=== PATIENT | male | born 1985 | race Caucasian/White ===

== ENCOUNTER → 2024-01-18 16:02 | Outpatient (CLI) | payer OTHER, SELFPAY ==
--- NOTE | 2024-01-18 16:07 | DI.RAD.S_ITS ---
PROCEDURE: XR KNEE RT 3V INDICATIONS: RIGHT KNEE PAIN TECHNIQUE: 3 views of the knee were acquired. COMPARISON: None. FINDINGS: Bones: No fractures or dislocations. No suspicious bony lesions. Soft tissues: Mild joint effusion. No suspicious soft tissue calcifications. IMPRESSION: Mild effusion. No visualized acute fracture or dislocation. However, if clinical concern and/or pain persist, short interval imaging followup in 7-10 days is recommended, as occult injury cannot be definitively excluded. Dictated by: Vero Razo M.D. on 01/18/2024 at 17:37 Approved by: Vero Razo M.D. on 01/18/2024 at 17:37
--- NOTE | 2024-01-18 16:07 | DI.RAD.S_ITS ---
PROCEDURE: XR LUMBAR SPINE MIN 4V INDICATIONS: BACK PAIN TECHNIQUE: 5 views of the lumbar spine were acquired, including bilateral oblique views. COMPARISON: None. FINDINGS: Bones: 5 nonrib-bearing vertebrae are present. There is normal bony alignment. No vertebral body compression fractures. No suspicious bony lesions. Soft tissues: Overlying bowel gas pattern is normal. No suspicious soft tissue calcifications. Oblique images: No pars defects. IMPRESSION: No acute bony abnormality. Approved by: Sukumar Webb M.D. on 01/18/2024 at 17:25
== END ==
LOC: RAD 16:06
PROVIDERS: PCP Registered Nurse Diabetes Educator; Referring Provider Physical Medicine & Rehabilitation; Visit Provider Physical Medicine & Rehabilitation
DX: M25.461 Effusion, right knee (principal); M25.561 Pain in right knee; M54.9 Dorsalgia, unspecified
CPT/HCPCS: 72110; 73562

== ENCOUNTER → 2024-02-02 | Outpatient (CLI) | payer OTHER, SELFPAY | PROVIDERS: PCP Registered Nurse Diabetes Educator; Referring Provider Internal Medicine; Visit Provider Internal Medicine | DX: Z23 Encounter for immunization (principal) | CPT/HCPCS: 90471; 90656 ==

== ENCOUNTER → 2024-03-30 15:45 | Outpatient (CLI) | payer OTHER, SELFPAY ==
--- NOTE | 2024-03-30 15:48 | DI.MRI.S_ITS ---
PROCEDURE: MR KNEE RT WO CON INDICATIONS: KNEE EFFUSION,RT KNEE TECHNIQUE: Noncontrast sagittal PD fast spin echo and T2 fast spin echo with fat saturation, sagittal 3-D FLASH with fat saturation; coronal T1 spin echo and PD fast spin echo with fat saturation, and axial PD fast spin echo with fat saturation through the knee. COMPARISON: None. FINDINGS: Image quality: Excellent Menisci: In the medial meniscus, there is a horizontal oblique tear at the posterior horn and meniscus body junction (14:21). There is mild extrusion of the medial meniscus body. The lateral meniscus is unremarkable. Cruciate ligaments: The anterior and posterior cruciate ligaments appear intact. Medial structures: The medial collateral ligament appears intact. The posterior oblique ligament, semimembranosus tendon insertions, oblique popliteal ligament, and meniscocapsular junction appear intact. Visualized portions of the pes anserinus tendons appear normal. No abnormal bursal fluid. Lateral structures: The lateral collateral ligament, long and short heads of the biceps femoris tendon appear intact. The popliteus tendon appears normal; the popliteofibular ligament appears intact. The posterosuperior and anteroinferior popliteomeniscal fascicles appear intact. The arcuate and fabellofibular ligaments appear intact, on either side of the lateral inferior geniculate artery. Iliotibial band appears normal. Anterior structures: The quadriceps and patellar tendons appear intact. Patellar alignment is normal. No femoral trochlear dysplasia or ventral trochlear prominence. No edema in the infrapatellar fat pad. Bones and cartilage: There is mild chondral irregularity of the median ridge of the patella. The mild chondral irregularity of the central trochlea, with mild subchondral marrow edema. In the medial compartment, the cartilage is well maintained. In the lateral compartment, the cartilage is grossly well maintained as well. No acute fracture. Joint space: Small knee effusion. No popliteal cyst. Popliteal vasculature is unremarkable. No intra-articular body. IMPRESSION: 1. Tear of the medial meniscus. 2. Mild chondrosis of the patellofemoral compartment with mild subchondral marrow edema. Dictated by: Amanda Gonzales M.D. on 03/31/2024 at 10:09 Approved by: Amanda Gonzales M.D. on 03/31/2024 at 10:29
== END ==
PROVIDERS: PCP Registered Nurse Diabetes Educator; Referring Provider Orthopaedic Surgery; Visit Provider Orthopaedic Surgery
DX: S83.241A Other tear of medial meniscus, current injury, right knee, initial encounter (principal); M22.41 Chondromalacia patellae, right knee; M25.461 Effusion, right knee
CPT/HCPCS: 73721

== ENCOUNTER 2024-09-22 15:15 | Outpatient (RCR) | payer OTHER, SELFPAY ==
--- NOTE | 2024-08-25 09:18 | PT.OIE ---
Current Diagnoses Other chronic pain (08/24/24) Dorsalgia, unspecified (08/24/24) Other tear of medial meniscus, current injury, right knee, subsequent encounter (08/24/24) Past Medical History (Last Reviewed 01/19/24 @ 10:21 by Sumit Leon DO) Facet arthropathy, lumbar Herniated nucleus pulposus, L5-S1 Patellofemoral arthralgia of right knee Visit Care Team Role Provider Type AMANDA Palmer Family Provider Advanced Floorman Primary Care Provider Specialty: Medical Address: [address] [place] [address], [address] Email: [email or web address] Dain Gomez MD Attending Provider Non-Staff Referring Provider Specialty: Orthopedic Surgery Address: [address] [place] [address] , [place], [address] Email: Physical Therapy Initial Evaluation PT-OP-A Visit Information Start: 08/24/24 16:11 Freq: Status: Active Protocol: Document 08/24/24 16:12 BL (Rec: 08/24/24 18:18 BL Laptop) Out-Patient Physical Therapy Visit Information Visit Information Visit Type Initial Evaluation Visit Start Time 16:15 Visit Stop Time 16:55 Visit Number (1) 03/17 (PN by 09/23/24) Precautions Precautions Medial and Lateral meniscus debridement on 08/03/24. PT-OP-C Subjective Start: 08/24/24 16:11 Freq: Status: Active Protocol: Document 08/24/24 16:12 BL (Rec: 08/24/24 18:18 BL Laptop) OP-PT Subjective Patient Comments Patient Comments Pt presents to the clinic today following R knee, medial and lateral meniscus debridement on 08/03/24. Pt had is two week follow up on 08/17/24, where he was instructed to continue with WBAT and activity per tolerance. Pt reports he is eager to return to dynamic sport activity including running. Pt states his next follow up in September 20. Pt states overall he is doing well, states he continues to ice and elevate, he did return to work this week and feels the knee is swelling more over the past several days. Has continued to walk up to 15 minutes at a time. Reports no severe pain but states he feels the stiffness and decreased strength. Patient Reported Improving Progress Patient Questionnaires Lower Extremity Functional Scale LEFS Score 38% function. PT-OP-F Manual Assessment Start: 08/24/24 16:11 Freq: Status: Active Protocol: Document 08/24/24 16:12 BL (Rec: 08/24/24 18:18 BL Laptop) Manual Assessments Soft Tissue Assessment Soft Tissue Mobility Pt demos increased swelling around knee. Assessment Joint Mobility Assessment Joint Mobility demos proper arthrokinematics. Assessment PT-OP-H Neuro Start: 08/24/24 16:11 Freq: Status: Active Protocol: Document 08/24/24 16:12 BL (Rec: 08/24/24 18:18 BL Laptop) Sensation Evaluation Comments Summary Comments no sensation deficits noted this date. Coordination Evaluation Comments Coordination no coordination deficits noted this date, however pt Comments reports feeling stiff with flexion activity. PT-OP-J Posture/Palpation/Skin Start: 08/24/24 16:11 Freq: Status: Active Protocol: Document 08/24/24 16:12 BL (Rec: 08/24/24 18:18 BL Laptop) Posture Evaluation Comments Posture Comments Pt demos increased base of support in standing, is able to fully lock out R knee as needed, demos posterior tilt in sitting. Palpation Assessment Location R knee Palpation Details pt point tender to medial aspect, demos good patellar mobility with slight limitations superior limitations Skin Assessment Other Assessments Skin Assessment Incisions healing well, no sign of infection Comments PT-OP-K Range of Motion Start: 08/24/24 16:11 Freq: Status: Active Protocol: Document 08/24/24 16:12 BL (Rec: 08/24/24 18:18 BL Laptop) Hip Goniometric Range of Motion Hip right Hip ROM WFL Yes left Hip ROM WFL Yes Knee Goniometric Range of Motion Knee Right Flexion Active ( 134 degrees) Extension Active ( 0 degrees) Comments pt limited due to discomfort Left Flexion Active ( 155 degrees) Extension Active ( 0 degrees) PT-OP-M Strength Start: 08/24/24 16:11 Freq: Status: Active Protocol: Document 08/24/24 16:12 BL (Rec: 08/24/24 18:18 BL Laptop) Trunk Strength Trunk Manual Muscle Testing Flexion 4 Good Core Stabilization Pt demos difficulty maintaining TA activation with SLR. Hip Strength Hip Manual Muscle Testing Right Flexion (L2) 5 Normal Extension (S1) 4+ Good+ Abduction 5 Normal Adduction 5 Normal Left Flexion (L2) 5 Normal Extension (S1) 4+ Good+ Abduction 5 Normal Adduction 5 Normal Knee Strength Knee Manual Muscle Testing Right Comments not tested today due to recent surgical intervention Left Flexion (S2) 5 Normal Extension (L3) 5 Normal PT-OP-Q Treatments Start: 08/24/24 16:11 Freq: Status: Active Protocol: Document 08/24/24 16:12 BL (Rec: 08/24/24 18:18 BL Laptop) Therapeutic Exercises Supine Exercises strength Supine Exercise Name quad set with ER SLR, heel slides up to tightness Comments focus on core activation and breathing Neuro Re-Education Treatment Coordination Activities Biofeedback Details blood pressure cuff Comments pt instructed in TA activation with use of biofeedback, pt demos difficulty maintaining activation pressure between 30-35. PT-OP-T Assessment and Plan Start: 08/24/24 16:11 Freq: Status: Active Protocol: Document 08/24/24 16:12 BL (Rec: 08/24/24 18:18 BL Laptop) Physical Therapy Assessment Rehab Potential Rehabilitation Good Potential Evaluation Complexity Number of Personal 1-2 Factors/ Comorbidities Number of Body 3 Systems Impaired Clinical Evolving Presentation at Evaluation Impairments Impairments Activity Tolerance,Balance,Coordination,Edema, Functional Activities,Functional Mobility,Gait, Integument,Pain,Posture,ROM,Soft Tissue Mobility, Strength Goals Five Correction Goal (LTG) Pt will be able to demo R knee extension strength to 5/ 5 by DC for improved quad control with gait. Four Wic Site Coordinator Goal (LTG) Pt will be able to demo active R knee flexion to 150 deg or better by DC for improved squatting activities. Three Correction Goal (LTG) Pt will demo improved LEFS score to 95% function or better by DC for improved quality of life. Two Correction Goal (LTG) Pt will be able to report running on uneven ground without increase in symptoms by DC for completion of health and fitness activities One Short Term Goal (STG pt will be ind with HEP within 2 visits in order to ) progress toward halfway therapy goals outside of therapy sessions. Wic Site Coordinator Goal (LTG) Pt will demo cutting activities without increase in symptoms by DC for improved functional mobility with tennis activity. Assessment Summary Assessment Pt healing well after R meniscus debridement, pt demos swelling and stiffness in his knee as well as decreased quad control. Pt demos deficits in strength and AROM. Pt will benefit from skilled Physical Therapy intervention for strength and endurance training as well as progression of dynamic loading activities to return to sport and reduce risk of re-injury. Physical Therapy Plan Frequency and Duration Frequency of 2x/Week Treatment Duration of 12 treatment (weeks) Plan of Care Start 08/24/24 Date Plan of Care End 11/16/24 Date Therapeutic Interventions Therapeutic Balance Training,Coordination Training,Gait Training, Interventions Home Exercise Program,Joint Mobilizations,Manual Therapy,Neuromuscular Re-education,Patient/Caregiver Education,Self-Care/Home Management,Sensory Integration ,Soft Tissue Mobilization,Taping,Therapeutic Activities ,Therapeutic Exercises Modalities Cold Pack/Ice Massage,Electric Stimulation,Hot Packs, Infrared Therapy,Iontophoresis,Traction- Mechanical, Ultrasound Next Visit Focus/Plan Next Note Type Treatment Note Next Visit Plan Advance ROM/Strength per pt tolerance, slow progression for meniscus rehab.
--- NOTE | 2024-08-25 09:23 | PT.OIE ---
Current Diagnoses Other chronic pain (08/24/24) Dorsalgia, unspecified (08/24/24) Other tear of medial meniscus, current injury, right knee, subsequent encounter (08/24/24) Past Medical History (Last Reviewed 01/19/24 @ 10:21 by Sumit Leon DO) Facet arthropathy, lumbar Herniated nucleus pulposus, L5-S1 Patellofemoral arthralgia of right knee Visit Care Team Role Provider Type AMANDA Palmer Family Provider Advanced Assistant Strength Coach Primary Care Provider Specialty: Medical Address: [address] [place] [address], [address] Email: [email or web address] Dain Gomez MD Attending Provider Non-Staff Referring Provider Specialty: Orthopedic Surgery Address: [address] [place] [address] , [place], [address] Email: Physical Therapy Initial Evaluation PT-OP-A Visit Information Start: 08/24/24 16:11 Freq: Status: Active Protocol: Document 08/24/24 16:12 BL (Rec: 08/24/24 18:18 BL Laptop) Out-Patient Physical Therapy Visit Information Visit Information Visit Type Initial Evaluation Visit Start Time 16:15 Visit Stop Time 16:55 Visit Number (1) 03/17 (PN by 09/23/24) Precautions Precautions Medial and Lateral meniscus debridement on 08/03/24. PT-OP-C Subjective Start: 08/24/24 16:11 Freq: Status: Active Protocol: Document 08/24/24 16:12 BL (Rec: 08/24/24 18:18 BL Laptop) OP-PT Subjective Patient Comments Patient Comments Pt presents to the clinic today following R knee, medial and lateral meniscus debridement on 08/03/24. Pt had is two week follow up on 08/17/24, where he was instructed to continue with WBAT and activity per tolerance. Pt reports he is eager to return to dynamic sport activity including running. Pt states his next follow up in September 20. Pt states overall he is doing well, states he continues to ice and elevate, he did return to work this week and feels the knee is swelling more over the past several days. Has continued to walk up to 15 minutes at a time. Reports no severe pain but states he feels the stiffness and decreased strength. Patient Reported Improving Progress Patient Questionnaires Lower Extremity Functional Scale LEFS Score 38% function. PT-OP-F Manual Assessment Start: 08/24/24 16:11 Freq: Status: Active Protocol: Document 08/24/24 16:12 BL (Rec: 08/24/24 18:18 BL Laptop) Manual Assessments Soft Tissue Assessment Soft Tissue Mobility Pt demos increased swelling around knee. Assessment Joint Mobility Assessment Joint Mobility demos proper arthrokinematics. Assessment PT-OP-H Neuro Start: 08/24/24 16:11 Freq: Status: Active Protocol: Document 08/24/24 16:12 BL (Rec: 08/24/24 18:18 BL Laptop) Sensation Evaluation Comments Summary Comments no sensation deficits noted this date. Coordination Evaluation Comments Coordination no coordination deficits noted this date, however pt Comments reports feeling stiff with flexion activity. PT-OP-J Posture/Palpation/Skin Start: 08/24/24 16:11 Freq: Status: Active Protocol: Document 08/24/24 16:12 BL (Rec: 08/24/24 18:18 BL Laptop) Posture Evaluation Comments Posture Comments Pt demos increased base of support in standing, is able to fully lock out R knee as needed, demos posterior tilt in sitting. Palpation Assessment Location R knee Palpation Details pt point tender to medial aspect, demos good patellar mobility with slight limitations superior limitations Skin Assessment Other Assessments Skin Assessment Incisions healing well, no sign of infection Comments PT-OP-K Range of Motion Start: 08/24/24 16:11 Freq: Status: Active Protocol: Document 08/24/24 16:12 BL (Rec: 08/24/24 18:18 BL Laptop) Hip Goniometric Range of Motion Hip right Hip ROM WFL Yes left Hip ROM WFL Yes Knee Goniometric Range of Motion Knee Right Flexion Active ( 134 degrees) Extension Active ( 0 degrees) Comments pt limited due to discomfort Left Flexion Active ( 155 degrees) Extension Active ( 0 degrees) PT-OP-M Strength Start: 08/24/24 16:11 Freq: Status: Active Protocol: Document 08/24/24 16:12 BL (Rec: 08/24/24 18:18 BL Laptop) Trunk Strength Trunk Manual Muscle Testing Flexion 4 Good Core Stabilization Pt demos difficulty maintaining TA activation with SLR. Hip Strength Hip Manual Muscle Testing Right Flexion (L2) 5 Normal Extension (S1) 4+ Good+ Abduction 5 Normal Adduction 5 Normal Left Flexion (L2) 5 Normal Extension (S1) 4+ Good+ Abduction 5 Normal Adduction 5 Normal Knee Strength Knee Manual Muscle Testing Right Comments not tested today due to recent surgical intervention Left Flexion (S2) 5 Normal Extension (L3) 5 Normal PT-OP-Q Treatments Start: 08/24/24 16:11 Freq: Status: Active Protocol: Document 08/24/24 16:12 BL (Rec: 08/24/24 18:18 BL Laptop) Therapeutic Exercises Supine Exercises strength Supine Exercise Name quad set with ER SLR, heel slides up to tightness Comments focus on core activation and breathing Neuro Re-Education Treatment Coordination Activities Biofeedback Details blood pressure cuff Comments pt instructed in TA activation with use of biofeedback, pt demos difficulty maintaining activation pressure between 30-35. PT-OP-T Assessment and Plan Start: 08/24/24 16:11 Freq: Status: Active Protocol: Document 08/24/24 16:12 BL (Rec: 08/24/24 18:18 BL Laptop) Physical Therapy Assessment Rehab Potential Rehabilitation Good Potential Evaluation Complexity Number of Personal 1-2 Factors/ Comorbidities Number of Body 3 Systems Impaired Clinical Evolving Presentation at Evaluation Impairments Impairments Activity Tolerance,Balance,Coordination,Edema, Functional Activities,Functional Mobility,Gait, Integument,Pain,Posture,ROM,Soft Tissue Mobility, Strength Goals Five Mcc Goal (LTG) Pt will be able to demo R knee extension strength to 5/ 5 by DC for improved quad control with gait. Four Fresco Artist Goal (LTG) Pt will be able to demo active R knee flexion to 150 deg or better by DC for improved squatting activities. Three Mcc Goal (LTG) Pt will demo improved LEFS score to 95% function or better by DC for improved quality of life. Two Mcc Goal (LTG) Pt will be able to report running on uneven ground without increase in symptoms by DC for completion of health and fitness activities One Short Term Goal (STG pt will be ind with HEP within 2 visits in order to ) progress toward snf therapy goals outside of therapy sessions. Fresco Artist Goal (LTG) Pt will demo cutting activities without increase in symptoms by DC for improved functional mobility with tennis activity. Assessment Summary Assessment Pt healing well after R meniscus debridement, pt demos swelling and stiffness in his knee as well as decreased quad control and trunk control. Pt demos deficits in strength and AROM to L knee as well as trunk control with LE activity. Pt will benefit from skilled Physical Therapy intervention for strength and endurance training as well as progression of dynamic loading activities to return to sport and reduce risk of re- injury. Physical Therapy Plan Frequency and Duration Frequency of 2x/Week Treatment Duration of 12 treatment (weeks) Plan of Care Start 08/24/24 Date Plan of Care End 11/16/24 Date Therapeutic Interventions Therapeutic Balance Training,Coordination Training,Gait Training, Interventions Home Exercise Program,Joint Mobilizations,Manual Therapy,Neuromuscular Re-education,Patient/Caregiver Education,Self-Care/Home Management,Sensory Integration ,Soft Tissue Mobilization,Taping,Therapeutic Activities ,Therapeutic Exercises Modalities Cold Pack/Ice Massage,Electric Stimulation,Hot Packs, Infrared Therapy,Iontophoresis,Traction- Mechanical, Ultrasound Next Visit Focus/Plan Next Note Type Treatment Note Next Visit Plan Advance ROM/Strength per pt tolerance, slow progression for meniscus rehab.
--- NOTE | 2024-08-25 09:23 | PT.OPPOC ---
Physical, Occupational & Speech Therapy At [facility] Current Diagnoses Other chronic pain (08/24/24) Dorsalgia, unspecified (08/24/24) Other tear of medial meniscus, current injury, right knee, subsequent encounter (08/24/24) Visit Care Team Role Provider Type AMANDA Palmer Family Provider Advanced Senior It Project Manager Primary Care Provider Specialty: Medical Address: [address] [place] [address], [address] Email: [email or web address] Dain Gomez MD Attending Provider Non-Staff Referring Provider Specialty: Orthopedic Surgery Address: [address] [place], [place] [address]osmar Krishnamurthy, [place], [address] Email: Plan Of Care PT-OP-T Assessment and Plan Start: 08/24/24 16:11 Freq: Status: Active Protocol: Document 08/24/24 16:12 BL (Rec: 08/24/24 18:18 BL Laptop) Physical Therapy Assessment Rehab Potential Rehabilitation Good Potential Evaluation Complexity Number of Personal 1-2 Factors/ Comorbidities Number of Body 3 Systems Impaired Clinical Evolving Presentation at Evaluation Impairments Impairments Activity Tolerance,Balance,Coordination,Edema, Functional Activities,Functional Mobility,Gait, Integument,Pain,Posture,ROM,Soft Tissue Mobility, Strength Goals Five Diving Board Assembler Goal (LTG) Pt will be able to demo R knee extension strength to 5/ 5 by DC for improved quad control with gait. Four Halfway Goal (LTG) Pt will be able to demo active R knee flexion to 150 deg or better by DC for improved squatting activities. Three Halfway Goal (LTG) Pt will demo improved LEFS score to 95% function or better by DC for improved quality of life. Two Halfway Goal (LTG) Pt will be able to report running on uneven ground without increase in symptoms by DC for completion of health and fitness activities One Short Term Goal (STG pt will be ind with HEP within 2 visits in order to ) progress toward halfway therapy goals outside of therapy sessions. Diving Board Assembler Goal (LTG) Pt will demo cutting activities without increase in symptoms by DC for improved functional mobility with tennis activity. Assessment Summary Assessment Pt healing well after R meniscus debridement, pt demos swelling and stiffness in his knee as well as decreased quad control and trunk control. Pt demos deficits in strength and AROM to L knee as well as trunk control with LE activity. Pt will benefit from skilled Physical Therapy intervention for strength and endurance training as well as progression of dynamic loading activities to return to sport and reduce risk of re- injury. Physical Therapy Plan Frequency and Duration Frequency of 2x/Week Treatment Duration of 12 treatment (weeks) Plan of Care Start 08/24/24 Date Plan of Care End 11/16/24 Date Therapeutic Interventions Therapeutic Balance Training,Coordination Training,Gait Training, Interventions Home Exercise Program,Joint Mobilizations,Manual Therapy,Neuromuscular Re-education,Patient/Caregiver Education,Self-Care/Home Management,Sensory Integration ,Soft Tissue Mobilization,Taping,Therapeutic Activities ,Therapeutic Exercises Modalities Cold Pack/Ice Massage,Electric Stimulation,Hot Packs, Infrared Therapy,Iontophoresis,Traction- Mechanical, Ultrasound Next Visit Focus/Plan Next Note Type Treatment Note Next Visit Plan Advance ROM/Strength per pt tolerance, slow progression for meniscus rehab. Plan of Care Dates Plan of Care Start Date 08/24/24 Plan of Care End Date 11/16/24 Electronically Signed by: Josh Hastings, PT 08/25/24 0923 If you are in agreement with this Plan of Care, please return a signed and dated copy. I have reviewed this Plan of Care and certify that the skilled therapy services above are required to meet the patient?s needs. Physician Signature Date Printed Name and Credentials Clinical Instructor Signature Printed Name and Credentials
--- NOTE | 2024-09-06 16:48 | PT.OTN ---
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 PT-OP-C Subjective Start: 08/24/24 16:11 Freq: Status: Active Protocol: Document 09/06/24 15:37 AB (Rec: 09/06/24 16:48 AB Laptop) OP-PT Subjective Patient Comments Patient Comments Patient reports swelling continues, no real complaints AROM lacking 25 deg 90/90 position R knee. AROM 0 to 132 deg flexion start of session PT-OP-F Manual Assessment Start: 08/24/24 16:11 Freq: Status: Active Protocol: Document 08/24/24 16:12 BL (Rec: 08/24/24 18:18 BL Laptop) Manual Assessments Soft Tissue Assessment Soft Tissue Mobility Pt demos increased swelling around knee. Assessment Joint Mobility Assessment Joint Mobility demos proper arthrokinematics. Assessment PT-OP-H Neuro Start: 08/24/24 16:11 Freq: Status: Active Protocol: Document 08/24/24 16:12 BL (Rec: 08/24/24 18:18 BL Laptop) Sensation Evaluation Comments Summary Comments no sensation deficits noted this date. Coordination Evaluation Comments Coordination no coordination deficits noted this date, however pt Comments reports feeling stiff with flexion activity. PT-OP-J Posture/Palpation/Skin Start: 08/24/24 16:11 Freq: Status: Active Protocol: Document 08/24/24 16:12 BL (Rec: 08/24/24 18:18 BL Laptop) Posture Evaluation Comments Posture Comments Pt demos increased base of support in standing, is able to fully lock out R knee as needed, demos posterior tilt in sitting. Palpation Assessment Location R knee Palpation Details pt point tender to medial aspect, demos good patellar mobility with slight limitations superior limitations Skin Assessment Other Assessments Skin Assessment Incisions healing well, no sign of infection Comments PT-OP-K Range of Motion Start: 08/24/24 16:11 Freq: Status: Active Protocol: Document 08/24/24 16:12 BL (Rec: 08/24/24 18:18 BL Laptop) Hip Goniometric Range of Motion Hip right Hip ROM WFL Yes left Hip ROM WFL Yes Knee Goniometric Range of Motion Knee Right Flexion Active ( 134 degrees) Extension Active ( 0 degrees) Comments pt limited due to discomfort Left Flexion Active ( 155 degrees) Extension Active ( 0 degrees) PT-OP-M Strength Start: 08/24/24 16:11 Freq: Status: Active Protocol: Document 08/24/24 16:12 BL (Rec: 08/24/24 18:18 BL Laptop) Trunk Strength Trunk Manual Muscle Testing Flexion 4 Good Core Stabilization Pt demos difficulty maintaining TA activation with SLR. Hip Strength Hip Manual Muscle Testing Right Flexion (L2) 5 Normal Extension (S1) 4+ Good+ Abduction 5 Normal Adduction 5 Normal Left Flexion (L2) 5 Normal Extension (S1) 4+ Good+ Abduction 5 Normal Adduction 5 Normal Knee Strength Knee Manual Muscle Testing Right Comments not tested today due to recent surgical intervention Left Flexion (S2) 5 Normal Extension (L3) 5 Normal PT-OP-Q Treatments Start: 08/24/24 16:11 Freq: Status: Active Protocol: Document 09/06/24 15:37 AB (Rec: 09/06/24 16:48 AB Laptop) Therapeutic Exercises Supine Exercises hamstring stretch Supine Exercise Name HEP Side bilateral Reps/Minutes 60 sec X 2 each LE Comments Verbal cues strength Supine Exercise Name quad set with ER SLR, heel slides up to tightness Reps/Minutes HEP Comments quad sets also performed standing and seated Other Exercises counter bird dog Equipment Used HEP Reps/Minutes X 10 Comments verbal cues core Other Exercise Name 1. Plank 2. side plank on wall 3. chin tuck with head lift 4. Pallof press Equipment Used HEP Reps/Minutes 1 one min 2. 30 sec each side3. 5 sec X 5 4. X 15 each side level 4 band Comments verbal and visual cues Manual Therapy Treatment Consent Patient gave verbal Yes consent for manual treatment Soft Tissue Mobilization R knee Body Location for swelling, HS stiffness, and to scar tissue Mobilization Type Cross-Friction,Rolling,Other Intensity/Depth Moderate Body Position Hooklying PT-OP-T Assessment and Plan Start: 08/24/24 16:11 Freq: Status: Active Protocol: Document 09/06/24 15:37 AB (Rec: 09/06/24 16:48 AB Laptop) Physical Therapy Assessment Goals Five Group Home Goal (LTG) Pt will be able to demo R knee extension strength to 5/ 5 by DC for improved quad control with gait. Four Group Home Goal (LTG) Pt will be able to demo active R knee flexion to 150 deg or better by DC for improved squatting activities. Three Segment Producer Goal (LTG) Pt will demo improved LEFS score to 95% function or better by DC for improved quality of life. 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 Group Home Goal (LTG) Pt will demo cutting activities without increase in symptoms by DC for improved functional mobility with tennis activity. Assessment Summary Assessment AROM R knee flexion 135 deg post manual and exercise. Patient reports having no pain end of session. Physical Therapy Plan Frequency and Duration Frequency of 2x/Week Treatment Duration of 12 treatment (weeks) Plan of Care Start 08/24/24 Date Plan of Care End 11/16/24 Date Next Visit Focus/Plan Next Note Type Treatment Note Next Visit Plan Advance ROM/Strength per pt tolerance, slow progression for meniscus rehab. asses illiopsoas strength, possibly glute med activation.
--- NOTE | 2024-09-22 16:15 | PT.OTN ---
Current Diagnoses Other chronic pain (09/22/24) Dorsalgia, unspecified (09/22/24) Other tear of medial meniscus, current injury, right knee, subsequent encounter (09/22/24) Physical Therapy Treatment Note PT-OP-A Visit Information Start: 08/24/24 16:11 Freq: Status: Active Protocol: Document 09/22/24 15:16 BL (Rec: 09/22/24 16:14 BL Laptop) Out-Patient Physical Therapy Visit Information Visit Information Visit Type Treatment Note Visit Start Time 15:55 Visit Stop Time 16:38 Visit Number (2) 2/10 (PN by 09/23/24) Number of COMMAND POST CRAFTSMAN Visits 1 Precautions Precautions Medial and Lateral meniscus debridement on 08/03/24. PT-OP-C Subjective Start: 08/24/24 16:11 Freq: Status: Active Protocol: Document 09/22/24 15:16 BL (Rec: 09/22/24 16:14 BL Laptop) OP-PT Subjective Patient Comments Patient Comments Pt presents to the clinic this date with decreased swelling, demos improved quad control. Reports he has continued working on his HEP when he can. PT-OP-F Manual Assessment Start: 08/24/24 16:11 Freq: Status: Active Protocol: Document 08/24/24 16:12 BL (Rec: 08/24/24 18:18 BL Laptop) Manual Assessments Soft Tissue Assessment Soft Tissue Mobility Pt demos increased swelling around knee. Assessment Joint Mobility Assessment Joint Mobility demos proper arthrokinematics. Assessment PT-OP-H Neuro Start: 08/24/24 16:11 Freq: Status: Active Protocol: Document 08/24/24 16:12 BL (Rec: 08/24/24 18:18 BL Laptop) Sensation Evaluation Comments Summary Comments no sensation deficits noted this date. Coordination Evaluation Comments Coordination no coordination deficits noted this date, however pt Comments reports feeling stiff with flexion activity. PT-OP-J Posture/Palpation/Skin Start: 08/24/24 16:11 Freq: Status: Active Protocol: Document 08/24/24 16:12 BL (Rec: 08/24/24 18:18 BL Laptop) Posture Evaluation Comments Posture Comments Pt demos increased base of support in standing, is able to fully lock out R knee as needed, demos posterior tilt in sitting. Palpation Assessment Location R knee Palpation Details pt point tender to medial aspect, demos good patellar mobility with slight limitations superior limitations Skin Assessment Other Assessments Skin Assessment Incisions healing well, no sign of infection Comments PT-OP-K Range of Motion Start: 08/24/24 16:11 Freq: Status: Active Protocol: Document 08/24/24 16:12 BL (Rec: 08/24/24 18:18 BL Laptop) Hip Goniometric Range of Motion Hip right Hip ROM WFL Yes left Hip ROM WFL Yes Knee Goniometric Range of Motion Knee Right Flexion Active ( 134 degrees) Extension Active ( 0 degrees) Comments pt limited due to discomfort Left Flexion Active ( 155 degrees) Extension Active ( 0 degrees) PT-OP-M Strength Start: 08/24/24 16:11 Freq: Status: Active Protocol: Document 08/24/24 16:12 BL (Rec: 08/24/24 18:18 BL Laptop) Trunk Strength Trunk Manual Muscle Testing Flexion 4 Good Core Stabilization Pt demos difficulty maintaining TA activation with SLR. Hip Strength Hip Manual Muscle Testing Right Flexion (L2) 5 Normal Extension (S1) 4+ Good+ Abduction 5 Normal Adduction 5 Normal Left Flexion (L2) 5 Normal Extension (S1) 4+ Good+ Abduction 5 Normal Adduction 5 Normal Knee Strength Knee Manual Muscle Testing Right Comments not tested today due to recent surgical intervention Left Flexion (S2) 5 Normal Extension (L3) 5 Normal PT-OP-Q Treatments Start: 08/24/24 16:11 Freq: Status: Active Protocol: Document 09/22/24 15:16 BL (Rec: 09/22/24 16:14 BL Laptop) Therapeutic Exercises Supine Exercises bridges Supine Exercise Name Heel digs in ford disk, marching with band Resistance lvl 4 hamstring stretch Supine Exercise Name HEP Side bilateral Reps/Minutes 60 sec X 2 each LE Comments Verbal cues strength Supine Exercise Name quad set with ER SLR, heel slides up to tightness Reps/Minutes HEP Comments quad sets also performed standing and seated Sidelying Exercises strength Sidelying Exercise hip abduction Name Equipment Used lvl 4 Comments cues for core activation and improved glute activation. Standing Exercises Calf Standing Exercise Dynamic heel raises off 4in step Name strength Standing Exercise sit<>stand with R dominance stand, lateral step ups 4 Name in franci Comments cues for glute control and core activation. Other Exercises [id number] Other Exercise Name 5 minutes Resistance lvl 5 Comments cues for knee alignment Neuro Re-Education Treatment Coordination Activities Dynamic Balance Details Static stance on foam, cone taps Comments focus on knee locking and unlocking with tracking focus . Pt tolerates well, fatigued following. PT-OP-T Assessment and Plan Start: 08/24/24 16:11 Freq: Status: Active Protocol: Document 09/22/24 15:16 BL (Rec: 09/22/24 16:14 BL Laptop) Physical Therapy Assessment Goals Five Laserist Goal (LTG) Pt will be able to demo R knee extension strength to 5/ 5 by DC for improved quad control with gait. Four Penitentiary Goal (LTG) Pt will be able to demo active R knee flexion to 150 deg or better by DC for improved squatting activities. Three Laserist Goal (LTG) Pt will demo improved LEFS score to 95% function or better by DC for improved quality of life. 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 Laserist Goal (LTG) Pt will demo cutting activities without increase in symptoms by DC for improved functional mobility with tennis activity. Assessment Summary Assessment Pt tolerates session well, advanced HEP for quad control and hamstring, abductor strength. Pt tolerates core activation activities well without increase in symptoms. Continue to advance within pts tolerance. Physical Therapy Plan Frequency and Duration Frequency of 2x/Week Treatment Duration of 12 treatment (weeks) Plan of Care Start 08/24/24 Date Plan of Care End 11/16/24 Date Next Visit Focus/Plan Next Note Type Treatment Note Next Visit Plan Advance ROM/Strength per pt tolerance, slow progression for meniscus rehab. asses illiopsoas strength, possibly glute med activation.
--- NOTE | 2024-11-09 08:49 | PT.OPDS ---
Current Diagnoses Other chronic pain (09/22/24) Dorsalgia, unspecified (09/22/24) Other tear of medial meniscus, current injury, right knee, subsequent encounter (09/22/24) Visit Care Team Role Provider Type AMANDA Palmer Family Provider Advanced Technician'S Helper Primary Care Provider Specialty: Medical Address: [address] [place] [address], [phone] Email: [email or web address] Dain Gomez MD Attending Provider Non-Staff Referring Provider Specialty: Orthopedic Surgery Address: [address] [place] [address], [id number] Email: Visit Number Visit Number (2) 210 (PN by 09/23/24) Discharge Summary Spoke with pt and pt reports he is doing well, states continues to have mild feelings of swelling but continues to encorporate activity back into his day to day life without increased discomfort. Plan to DC pt this date due expiration of POC. PT-OP-A Visit Information Start: 08/24/24 16:11 Freq: Status: Active Protocol: Document 09/22/24 15:16 BL (Rec: 09/22/24 16:14 BL Laptop) Out-Patient Physical Therapy Visit Information Visit Information Visit Type Treatment Note Visit Start Time 15:55 Visit Stop Time 16:38 Visit Number (2) 2 (PN by 09/23/24) Number of INTEL RECRUITER Visits 1 Precautions Precautions Medial and Lateral meniscus debridement on 08/03/24. PT-OP-C Subjective Start: 08/24/24 16:11 Freq: Status: Active Protocol: Document 09/22/24 15:16 BL (Rec: 09/22/24 16:14 BL Laptop) OP-PT Subjective Patient Comments Patient Comments Pt presents to the clinic this date with decreased swelling, demos improved quad control. Reports he has continued working on his HEP when he can. PT-OP-F Manual Assessment Start: 08/24/24 16:11 Freq: Status: Active Protocol: Document 08/24/24 16:12 BL (Rec: 08/24/24 18:18 BL Laptop) Manual Assessments Soft Tissue Assessment Soft Tissue Mobility Pt demos increased swelling around knee. Assessment Joint Mobility Assessment Joint Mobility demos proper arthrokinematics. Assessment PT-OP-H Neuro Start: 08/24/24 16:11 Freq: Status: Active Protocol: Document 08/24/24 16:12 BL (Rec: 08/24/24 18:18 BL Laptop) Sensation Evaluation Comments Summary Comments no sensation deficits noted this date. Coordination Evaluation Comments Coordination no coordination deficits noted this date, however pt Comments reports feeling stiff with flexion activity. PT-OP-J Posture/Palpation/Skin Start: 08/24/24 16:11 Freq: Status: Active Protocol: Document 08/24/24 16:12 BL (Rec: 08/24/24 18:18 BL Laptop) Posture Evaluation Comments Posture Comments Pt demos increased base of support in standing, is able to fully lock out R knee as needed, demos posterior tilt in sitting. Palpation Assessment Location R knee Palpation Details pt point tender to medial aspect, demos good patellar mobility with slight limitations superior limitations Skin Assessment Other Assessments Skin Assessment Incisions healing well, no sign of infection Comments PT-OP-K Range of Motion Start: 08/24/24 16:11 Freq: Status: Active Protocol: Document 08/24/24 16:12 BL (Rec: 08/24/24 18:18 BL Laptop) Hip Goniometric Range of Motion Hip right Hip ROM WFL Yes left Hip ROM WFL Yes Knee Goniometric Range of Motion Knee Right Flexion Active ( 134 degrees) Extension Active ( 0 degrees) Comments pt limited due to discomfort Left Flexion Active ( 155 degrees) Extension Active ( 0 degrees) PT-OP-M Strength Start: 08/24/24 16:11 Freq: Status: Active Protocol: Document 08/24/24 16:12 BL (Rec: 08/24/24 18:18 BL Laptop) Trunk Strength Trunk Manual Muscle Testing Flexion 4 Good Core Stabilization Pt demos difficulty maintaining TA activation with SLR. Hip Strength Hip Manual Muscle Testing Right Flexion (L2) 5 Normal Extension (S1) 4+ Good+ Abduction 5 Normal Adduction 5 Normal Left Flexion (L2) 5 Normal Extension (S1) 4+ Good+ Abduction 5 Normal Adduction 5 Normal Knee Strength Knee Manual Muscle Testing Right Comments not tested today due to recent surgical intervention Left Flexion (S2) 5 Normal Extension (L3) 5 Normal PT-OP-T Assessment and Plan Start: 08/24/24 16:11 Freq: Status: Active Protocol: Document 09/22/24 15:16 BL (Rec: 09/22/24 16:14 BL Laptop) Physical Therapy Assessment Goals Five Shelter Goal (LTG) Pt will be able to demo R knee extension strength to 5/ 5 by DC for improved quad control with gait. Four Shelter Goal (LTG) Pt will be able to demo active R knee flexion to 150 deg or better by DC for improved squatting activities. Three Shelter Goal (LTG) Pt will demo improved LEFS score to 95% function or better by DC for improved quality of life. Two Shelter Goal (LTG) Pt will be able to report running on uneven ground without increase in symptoms by DC for completion of health and fitness activities One Short Term Goal (STG pt will be ind with HEP within 2 visits in order to ) progress toward care home therapy goals outside of therapy sessions. Shelter Goal (LTG) Pt will demo cutting activities without increase in symptoms by DC for improved functional mobility with tennis activity. Assessment Summary Assessment Pt tolerates session well, advanced HEP for quad control and hamstring, abductor strength. Pt tolerates core activation activities well without increase in symptoms. Continue to advance within pts tolerance. Physical Therapy Plan Frequency and Duration Frequency of 2x/Week Treatment Duration of 12 treatment (weeks) Plan of Care Start 08/24/24 Date Plan of Care End 11/16/24 Date Next Visit Focus/Plan Next Note Type Treatment Note Next Visit Plan Advance ROM/Strength per pt tolerance, slow progression for meniscus rehab. asses illiopsoas strength, possibly glute med activation.
== END 2024-11-13 13:47 | disposition home or self-care (01) ==
LOC: PHYS 15:15
PROVIDERS: Family Provider Registered Nurse Diabetes Educator; PCP Registered Nurse Diabetes Educator; Referring Provider Orthopaedic Surgery; Visit Provider Orthopaedic Surgery
DX: S83.241D Other tear of medial meniscus, current injury, right knee, subsequent encounter (principal); M54.9 Dorsalgia, unspecified; G89.29 Other chronic pain
CPT/HCPCS: 97110; 97112; 97140; 97162